=== PATIENT | female | born 1945 | race Caucasian/White ===

== ENCOUNTER 2024-08-16 04:59 | Emergency (ER) | payer MEDICARE, BC ==
[~2024-08-16] VITALS: Ht 144.8 cm; Wt 42.4 kg
[~2024-08-16 04:59] MED LIST: CHOL25TA4 PO; DILT120C12 PO; EZET10TA57 PO; LEVO75 PO; METO-325 PO; MIRT-89 PO; PANT-31 PO; QUET25TA PO
[2024-08-16] MEDS: AMIODARONE HCL 150 MG in DEXTROSE 5%-WATER 97 ML IV ONE (05:10)
[2024-08-16] MEDS: AMIODARONE HCL 360 MG in DEXTROSE 5%-WATER 242.8 ML IV ONE (05:10)
[2024-08-16] MEDS: SODIUM CHLORIDE 0.9% 1,000 ML IV ONE (05:24)
[2024-08-16] MEDS ORDERED: INSULIN REGULAR, HUMAN 100 UNITS/ML IVP ONE (06:00)
[2024-08-16] MEDS ORDERED: POTASSIUM CHL 20 MEQ/0.45% NS 1,000 ML IV PRN (06:00)
[2024-08-16] MEDS ORDERED: INSULIN REGULAR, HUMAN 100 UNITS in SODIUM CHLORIDE 0.9% 99 ML IV PRN (06:00)
[2024-08-16] MEDS ORDERED: SODIUM CHLORIDE 0.9% 1,000 ML IV SCH (06:00)
[2024-08-16] MEDS ORDERED: DEXTROSE 5%-0.45% SODIUM CHL 1,000 ML IV PRN (06:00)
[2024-08-16] MEDS ORDERED: POTASSIUM CHLORIDE 40 MEQ in SODIUM CHLORIDE 0.45% 1,000 ML IV PRN (06:00)
[2024-08-16] MEDS ORDERED: SODIUM CHLORIDE 0.45% 1,000 ML IV PRN (06:00)
[2024-08-16] MEDS ORDERED: DEXTROSE 50%-WATER 25 GM/50 ML SYRINGE IVP PRN (06:00)
[2024-08-16] MEDS ORDERED: INSULIN REGULAR, HUMAN 100 UNITS/ML IVP PRN (06:00)
[2024-08-16 06:47] VITALS: BP 118/79; PULSE 177; RESP 19; TEMP 97.9; O2SAT 95
[2024-08-16] MEDS ORDERED: NOREPINEPHRINE 8 MG/0.9 % NACL 250 ML IV ONE (06:55)
[2024-08-16] MEDS ORDERED: AMIODARONE HCL 540 MG in DEXTROSE 5%-WATER 250 ML IV ONE (11:15)
[2024-08-17] MEDS ORDERED: AMIODARONE HCL 750 MG in DEXTROSE 5%-WATER 485 ML IV SCH (05:15)
== END 2024-08-16 11:30 ==
LOC: EMS 05:00
DX: I48.0 Paroxysmal atrial fibrillation (principal); J96.90 Respiratory failure, unspecified, unspecified whether with hypoxia or hypercapnia; E78.00 Pure hypercholesterolemia, unspecified; I12.9 Hypertensive chronic kidney disease with stage 1 through stage 4 chronic kidney disease, or unspecified chronic kidney disease; E11.22 Type 2 diabetes mellitus with diabetic chronic kidney disease; N18.9 Chronic kidney disease, unspecified; Z88.0 Allergy status to penicillin; Z88.1 Allergy status to other antibiotic agents; Z88.6 Allergy status to analgesic agent; Z88.8 Allergy status to other drugs, medicaments and biological substances; Z79.899 Other long term (current) drug therapy
CPT/HCPCS: 99285; 96365; 96368; J0282 ×2; J7060 ×2; J1815; J7050